=== PATIENT | female | born 1970 | race Two or more races ===

== ENCOUNTER 2023-01-18 08:44 | Day surgery (SDC) | payer MEDICARE, OTHER ==
[2023-01-11 11:01] VITALS: BMI 32.4
[2023-01-18 10:47] VITALS: PULSE 89; RESP 18; TEMP 97.7
[2023-01-18 11:09] VITALS: BP 110/71
== END 2023-01-18 11:33 | disposition home or self-care (01) ==
LOC: FASU-ENDO 08:44
PROVIDERS: ATTEND Internal Medicine Gastroenterology
PROC: 0DBN8ZX Excision of Sigmoid Colon, Via Natural or Artificial Opening Endoscopic, Diagnostic (ICD-10-PCS; principal; 2023-01-18 10:20)
DX: Z12.11 Encounter for screening for malignant neoplasm of colon (principal); D12.5 Benign neoplasm of sigmoid colon; K64.1 Second degree hemorrhoids
CPT/HCPCS: 88305-TC